=== PATIENT | female | born 1990 | race Hispanic/Latino ===

== ENCOUNTER 2025-08-30 16:00 | Emergency (ER) | payer OTHER ==
[~2025-08-30] VITALS: Ht 167.6 cm; Wt 65.8 kg
[2025-08-30] MEDS ORDERED: TYLENOL325 MG PO (16:28)
[2025-08-30] MEDS ORDERED: MAGNESIUM OXID400 MG PO (16:28)
[2025-08-30] MEDS ORDERED: HYDROCODONE-AC473 M1 (16:28)
[2025-08-30] MEDS ORDERED: IOPAMIDOL 370 MG/ML 100 ML INFUS..BTL INJ ONE (17:09)
[2025-08-30 17:15] LABS: BASOPHILS % 0.1 % (0.0-1.0); EOSINOPHILS % 0.3 % (0.0-6.0); LYMPHOCYTES % 7.6 % (18.0-39.1); MONOCYTES % 5.7 % (4.4-11.3); NEUTROPHILS % 84.8 % (38.7-80.0); RED CELL DISTRIBUTION WIDTH 14.4 % (11.7-14.4)
[2025-08-30 17:22] LABS: AMPHETAMINES SCREEN,URINE NEGATIVE (NEGATIVE); CANNABINOIDS SCREEN,URINE NEGATIVE (NEGATIVE); COCAINE SCREEN,URINE NEGATIVE (NEGATIVE); METHADONE SCREEN, URINE NEGATIVE (NEGATIVE); OPIATES SCREEN,URINE POSITIVE (NEGATIVE)
[2025-08-30 17:28] LABS: INR 0.85
[2025-08-30 17:39] LABS: EST GLOMERULAR FILTRATION RATE 109 ML/MIN (>=60)
[2025-08-30] MEDS: SODIUM CHLORIDE 0.9% 1000ML 1,000 ML IV STA (18:18)
[2025-08-30] MEDS: ONDANSETRON HCL INJ 2MG/ML 2ML 2 MG/ML VIAL IV STA (18:19)
[2025-08-30 21:03] VITALS: BP 144/69; PULSE 78; RESP 18; TEMP 98.8
[2025-08-30 22:05] VITALS: PULSE 82; RESP 16; TEMP 98.7; O2SAT 98
== END 2025-08-30 22:07 | disposition other institution (70) ==
LOC: ER 16:09
DX: R42 Dizziness and giddiness (principal); Q28.2 Arteriovenous malformation of cerebral vessels; R11.2 Nausea with vomiting, unspecified; R51.9 Headache, unspecified; R94.31 Abnormal electrocardiogram [ECG] [EKG]; Z86.73 Personal history of transient ischemic attack (TIA), and cerebral infarction without residual deficits
CPT/HCPCS: 36415; 70450; 70496; 70498; 71045; 80053; 80307; 83735; 84484; 84702; 85025; 85610; 85730; 93005; 99284; J7030; Q9967; J2405